=== PATIENT | male | born 1940 | race African-American/Black ===

== ENCOUNTER → 2022-01-08 09:17 | Outpatient (CLI) | payer MEDICARE, SELFPAY ==
--- NOTE | ~2022-01-08 | MR_ITS ---
EXAMINATION: MR lumbar spine wo con DATE: 01/08/2022 09:55 INDICATION: Lumbar radiculopathy with low back and left leg pain TECHNIQUE: Magnetic resonance imaging (MRI) of the lumbar spine was performed without intravenous con trast. Sequences included sagittal T2-weighted FSE, sagittal T2-weighted FS FSE, sagittal T1-weighted FSE, and axial T2-weighted FSE. COMPARISON: None FINDINGS: Alignment is normal. Vertebral body heights are normal. Centimeters nodes along the inferior endplate of L4. T1 hyperintense hemangiomas at L2 and L3. Otherwise normal marrow signal. Severe disc height loss at L4-L5. Moderate disc height loss at L3-L4. Mild disc height loss at L2-L3 and L5-S1. The conu s medullaris terminates at L1. There is normal signal in the caudal spinal cord. Paravertebral soft t issues are unremarkable. The following disc levels are specifically discussed: T12-L1: The disc does not extend beyond the endplate margin. There is mild right and moderate left fa cet joint osteoarthritis. There is no neural foraminal stenosis. There is no central canal stenosis. L1-L2: The disc does not extend beyond the endplate margin. There is mild to moderate left and modera te right facet joint osteoarthritis. There is no neural foraminal stenosis. There is no central canal stenosis. L2-L3: Disc is mildly bulging. There is hypertrophy of the ligamentum flavum. There is mild bilatera l facet joint osteoarthritis. There is mild bilateral neural foraminal stenosis. There is mild centra l canal stenosis. L3-L4: Small disc protrusions at the bilateral foraminal zones. There is mild bilateral facet joint o steoarthritis. There is mild right and mild to moderate left neural foraminal stenosis. There is no c entral canal stenosis. L4-L5: Disc is bulging. There is mild bilateral facet joint osteoarthritis. There is moderate bilater al neural foraminal stenosis. There is mild central canal stenosis. L5-S1: Disc is bulging. Annular fissure with large left paracentral extruded versus sequestered disc fragment. The disc material which measures 1.5 cm medial to lateral, 1.0 cm AP and which extends 1.3 cm cephalad to the level of the inferior endplate of L5 severely narrows the left lateral recess exer ting mass effect upon the traversing left S1 nerve root. There is hypertrophy of the ligamentum flavu m. 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 There is mild left and mild to moderate right neural foraminal stenosis. There is mild central canal stenosis. IMPRESSION: 1. Severe lower lumbar spondylosis including a large left paracentral disc extrusion versus sequester ed disc fragment at L5-S1 which exerts mass effect upon the traversing left S1 nerve root. Correlate clinically for muscle weakness of plantar flexion, sensory change of the lateral foot and small toe, and depressed ankle reflex. Reviewed, dictated and finalized at location B. IMPRESSION: 1. Severe lower lumbar spondylosis including a large left paracentral disc extr usion versus sequestered disc fragment at L5-S1 which exerts mass effect upon t he traversing left S1 nerve root. Correlate clinically for muscle weakness of p lantar flexion, sensory change of the lateral foot and small toe, and depressed ankle reflex.
== END ==
PROVIDERS: PCP Family Medicine; Visit Provider Nurse Practitioner Family
DX: M54.16 Radiculopathy, lumbar region (principal); M43.06 Spondylolysis, lumbar region
CPT/HCPCS: 72148